=== PATIENT | female | born 1980 | race Caucasian/White ===

== ENCOUNTER → 2020-09-23 | Outpatient (CLI) | payer BC | LOC: RAD 14:14 | DX: M94.262 Chondromalacia, left knee (principal) ==

== ENCOUNTER → 2021-12-20 | Outpatient (CLI) | payer BC | LOC: RAD 16:09 | DX: R20.0 Anesthesia of skin (principal); M79.89 Other specified soft tissue disorders ==

== ENCOUNTER → 2022-01-02 | Outpatient (CLI) | payer BC | LOC: RAD 16:00 | DX: M94.8X8 Other specified disorders of cartilage, other site (principal); X50.0XXA Overexertion from strenuous movement or load, initial encounter ==